=== PATIENT | female | born 1945 ===

== ENCOUNTER → 2024-08-30 | Emergency (ER) | payer OTHER ==
[~2024-08-30] VITALS: Ht 152.4 cm; Wt 55.3 kg
[~2024-08-30] MED LIST: ASPIR 8181 MG; ATORVASTATIN CA40 MG; CENTRUM COMPLE1 EACH; COZAAR50 MG; HYDROCODONE/CHLORPHEN P-STIREX 5 ML ML PO STA; METOPROLOL ER-1 EACH; NORVASC5 MG
[2024-08-30 20:22] LABS: HEMATOCRIT 36.7 % (36.0-45.00); HEMOGLOBIN 12.6 g/dL (12.0-15.00); MEAN CELL VOLUME 90.5 fL (80.00-100.00); MEAN CORPUSCULAR HGB CONC 34.3 g/dl (32.0-36.0); PLATELET COUNT 216 K/uL (150-450); RED BLOOD COUNT 4.05 M/uL (4.00-6.00); RED CELL DISTRIBUTION WIDTH 13.5 % (11.5-14.5)
[2024-08-30 20:56] LABS: COVID-19 AG POSITIVE (NEGATIVE)
[2024-08-30 21:11] LABS: INFLUENZA A AG NEGATIVE (NEGATIVE)
== END | disposition home or self-care (01) ==
LOC: ER 14:54
DX: U07.1 COVID-19 (principal); J06.9 Acute upper respiratory infection, unspecified; R53.81 Other malaise